=== PATIENT | male | born 1955 | race Caucasian/White ===

== ENCOUNTER 2019-08-02 07:52 | Day surgery (SDC) | payer BC ==
[2019-08-02] MEDS ORDERED: PROPOFOL 10 MG/ML VIAL IV ONE (07:53)
[2019-08-02] MEDS ORDERED: LIDOCAINE 2% MDV (20MG/ML) 20ML VIAL IV ONE (07:53)
--- NOTE | 2019-08-03 13:00 | Operative Note ---
OPERATION: COLONOSCOPY with cold forceps and cold snare polypectomies. PREOPERATIVE DIAGNOSIS: Personal history of colon polyps. POSTOPERATIVE DIAGNOSIS: Ascending colon polyp and descending colon polyp. PROCEDURE: After informed consent was obtained from the patient, he was placed in the left lateral decubitus position in the endoscopy suite, sedated and monitored by the department of anesthesia. Digital rectal exam was unremarkable. A well-lubricated [id number] colonoscope was inserted into the rectum and advanced to the cecum. Preparation quality was good. The cecum and cecal bulb were inspected as well as the ileocecal valve and appendiceal orifice and were unremarkable. The ascending colon revealed a diminutive polyp removed with a cold forceps. The remainder of the ascending colon and transverse colon were unrevealing. There was a 4-5 mm sessile polyp in the descending colon removed with a cold snare. The remainder of the descending colon, sigmoid colon, and rectum were unremarkable. There was no excessive bleeding noted. The polyps were retrieved without difficulty. J-turn views and forward views of the rectum and anorectum were unremarkable. The endoscope was straightened, the rectal ampulla deflated, and the endoscope was removed. RECOMMENDATIONS: I would suggest the patient resume his medications and diet. He will require repeat exam in 3-5 years pending tissue histology. At this point, my suspicion is that it will be a 5-year followup with a final determination based on tissue histology. As always, thank you for allowing me to participate in the healthcare of your patients. DORIS
== END 2019-08-02 09:20 | disposition home or self-care (01) ==
LOC: HOP 07:52
PROVIDERS: ATTEND Internal Medicine Gastroenterology
DX: Z09 Encounter for follow-up examination after completed treatment for conditions other than malignant neoplasm (principal); Z86.010 Personal history of colon polyps; D12.2 Benign neoplasm of ascending colon; D12.4 Benign neoplasm of descending colon; E11.9 Type 2 diabetes mellitus without complications; I10 Essential (primary) hypertension; E78.00 Pure hypercholesterolemia, unspecified